=== PATIENT | female | born 1940 | race Caucasian/White ===

== ENCOUNTER 2024-12-15 17:10 | Emergency (ER) | payer OTHER ==
[~2024-12-15] VITALS: Ht 162.6 cm; Wt 58.9 kg
[2024-12-15 17:17] VITALS: BP 143/60; PULSE 70; RESP 12; TEMP 99.2; O2SAT 97
--- NOTE | 2024-12-15 17:38 | Physician Documentation ---
History of Present Illness ~ Chief Complaint: Rash Stated Complaint: RASH Time Seen by MD: 17:38 HPI This is an 84-year-old female who presents to the emergency department due to concerns for a rash that has on her face and extremities. She denies any new contacts, but admits that she has been traveling lately so has been out of her routine. She denies chest tightness, difficulty swallowing, throat tightness. She also denies feeling unwell, reports that she is overall at her baseline. She has used Benadryl with minimal relief. Medication Reconciliation Allergies: Coded Allergies: No Known Allergies (Unverified , 12/15/24) Scheduled Prednisone (Prednisone), 2 TAB PO DAILY Triamcinolone Acetonide 0.1% Crm* (Kenalog 0.1% Crm*), 1 APPLIC TOP Q12H Review of Systems ROS As stated above in the HPI, otherwise all systems are reviewed and negative. Physical Exam Vital Signs: Temperature: 99.2, Source: Temporal, Heart Rate: 70, Respiratory Rate: 12, BP: 143/60, Pulse Oximetry: 97, Weight: 58.900 Oxygen Flow Rate: 0 Physical Exam General: Alert, no apparent distress. HEENT: PERRL, EOMI, no injection, moist mucous membranes. Clear posterior pharynx. Uvula midline and visible. Neck: Full range of motion. Respiratory: Lungs clear, no respiratory distress. Chest: No accessory muscle use. Cardiovascular: Regular rate and rhythm, no murmurs. Gastrointestinal: Soft, nontender, nondistended. Bowels sounds present. Extremities: Normal range of motion, no deformity. Neurologic: Oriented x4. Psychiatric: Normal mood and affect. Skin: Normal color, warm and dry. No edema, no ecchymosis. Maculopapular rash to face and extremities. The face is most involved, with only scattered rash areas to extremities. Progress Results/Orders Results/Orders Completed Orders - ENOCH AGRAWAL NP Prednisone Tablet (Prednisone Tablet) (12/15/24 17:45) Vital Signs 12/15/24 17:17 Temp 99.2 Pulse 70 Resp 12 B/P (MAP) 143/60 Pulse Ox 97 O2 Flow Rate 0 Medical Decision Making Additional Comment 84-year-old well-appearing female with rash, pruritic per her report. Unresponsive to Benadryl. Unknown cause of rash. She will be treated with prednisone. She will be treated with triamcinolone, but told to avoid the face. She has been instructed to return if worse, otherwise follow up with the primary care provider. Departure Time of Disposition: 17:44 Impression: Primary Impression: Allergic contact dermatitis Condition: Stable Discharge Instructions: Contact Dermatitis Additional Instructions: Complete course of prednisone as prescribed or ok to stop if rash resolves. Use benadryl 25 mg daily at bedtime as needed for itching. Caution, causes drowsiness. Use the triamcinolone topical cream twice daily to rash areas, avoiding face. Followup soon with your primary care provider. Return if worse. Referrals: NO PRIMARY CARE PROVIDER (PCP) Prescriptions Triamcinolone Acetonide 0.1% Crm* (Kenalog 0.1% Crm*) 1 Applic Tube 1 APPLIC TOP Q12H for 10 Days, #80 GM Prov: ENOCH AGRAWAL NP 12/15/24 Prednisone (Prednisone) 10 Mg Tablet 2 TAB PO DAILY for 5 Days, #10 TAB Prov: ENOCH AGRAWAL NP 12/15/24 Education Educated: Patient, Family Educated regarding: diagnosis, treatment, prognosis, need for follow up Signature Scribe Signature: no scribe Attestation: The note accurately reflects work and decisions made by me.Enoch Hinojosa NP 12/15/24 17:51 ENOCH AGRAWAL NP Dec 15, 2024 17:38
[2024-12-15] MEDS ORDERED: KEN0.1O TOP (17:45)
[2024-12-15] MEDS ORDERED: PRED10TA23 PO (17:45)
[2024-12-15] MEDS: predniSONE 20 mg tablet PO ONE (17:49)
== END 2024-12-15 17:46 | disposition home or self-care (01) ==
LOC: ER 17:11
DX: L23.9 Allergic contact dermatitis, unspecified cause (principal)
CPT/HCPCS: 99283; J7512